=== PATIENT | male | born 1990 | race African-American/Black ===

== ENCOUNTER 2018-02-10 11:37 | Emergency (ER) | payer OTHER ==
[~2018-02-10] VITALS: Ht 170.2 cm; Wt 63.6 kg
[2018-02-10 12:55] LABS: HEMATOCRIT 44.3 % (38.0-50.0); HEMOGLOBIN 14.9 G/DL (12.5-16.6); MCHC 33.6 G/DL (30.0-36.0); MCV 83.3 FL (86-99); PLATELET COUNT 277 K/uL (156-360); RBC DIS.WIDTH-SD 39.5 % (39-53); RED BLOOD COUNT 5.32 M/uL (4.00-5.50); WHITE BLOOD COUNT 11.9 K/uL (4.1-10.2)
[2018-02-10 13:06] LABS: CHLORIDE 101 mEq/L (99-109); POTASSIUM 4.9 mEq/L (3.7-5.4); SODIUM 138 mEq/L (136-147)
[2018-02-10 13:07] LABS: GLUCOSE 122 mg/dL (70-99)
[2018-02-10 13:11] LABS: CREATININE 1.1 mg/dL (0.6-1.3)
[2018-02-10 13:12] LABS: UREA NITROGEN (BUN) 13 mg/dL (9-23)
[2018-02-10 13:18] LABS: GFR ESTIMATE (CALCULATED) > 59 mL/min/ (58.99-99999)
[2018-02-10 13:23] LABS: ALBUMIN 4.9 g/dL (3.2-4.8)
[2018-02-10 13:26] LABS: TOTAL PROTEIN 8.2 g/dL (6.4-8.3)
[2018-02-10 13:28] LABS: TOTAL BILIRUBIN 1.4 mg/dL (0.0-1.0)
[2018-02-10 13:29] LABS: ALKALINE PHOSPHATASE 103 IU/L (3-129)
[2018-02-10 13:31] LABS: AST (GOT) 25 IU/L (2-34)
[2018-02-10 13:32] LABS: ALT (GPT) 16 IU/L (3-49); DIRECT BILIRUBIN 0.6 mg/dL (0.0-0.3)
[2018-02-10 13:33] LABS: LIPASE 89 U/L (1.0-51.0)
[2018-02-10] MEDS ORDERED: ZOFRAN ODT4 MG PO (16:45)
[2018-02-10 17:09] VITALS: BP 125/79
== END 2018-02-10 17:10 | disposition home or self-care (01) ==
LOC: EME 11:37
DX: R11.2 Nausea with vomiting, unspecified (principal); R19.7 Diarrhea, unspecified; R10.9 Unspecified abdominal pain; E86.0 Dehydration; R74.8 Abnormal levels of other serum enzymes
CPT/HCPCS: 80048; 80076; 81003; 83690; 85027; 99281; 99284; J7030